=== PATIENT | male | born 2000 | race Caucasian/White ===

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

== ENCOUNTER 2023-04-27 00:18 | Emergency (ER) | payer MEDICAID ==
[2023-04-27 00:25] VITALS: BP 141/78; PULSE 98
[2023-04-27] MEDS: Take Home: Naproxen 500 MG Tab, 4 Tab Pack PO ONE (02:00)
== END 2023-04-27 02:10 | disposition home or self-care (01) ==
LOC: VM.ED 00:18
DX: S43.402A Unspecified sprain of left shoulder joint, initial encounter (principal); S53.402A Unspecified sprain of left elbow, initial encounter; S46.912A Strain of unspecified muscle, fascia and tendon at shoulder and upper arm level, left arm, initial encounter; S54.02XA Injury of ulnar nerve at forearm level, left arm, initial encounter; Y04.0XXA Assault by unarmed brawl or fight, initial encounter
CPT/HCPCS: 99283; A9270